=== PATIENT | female | born 1980 | race Caucasian/White ===

== ENCOUNTER 2023-02-05 12:42 | Emergency (ER) | payer BC, MEDICAID, OTHER ==
[~2023-02-05 12:42] MED LIST: Dexamethasone 4 MG/ML SDV IM ONE
[2023-02-05] MEDS ORDERED: hydrOXYzine HCl 25 MG Tab PO ONE (13:21)
== END 2023-02-05 13:58 ==
LOC: MERGE 12:42 → DL.ED 12:42
DX: T63.441A Toxic effect of venom of bees, accidental (unintentional), initial encounter (principal); Z91.030 Bee allergy status; Z88.2 Allergy status to sulfonamides; Z88.8 Allergy status to other drugs, medicaments and biological substances
CPT/HCPCS: 96372; 99283; 99284; A9270-GY; J1100

== ENCOUNTER 2023-04-10 15:07 | Emergency (ER) | payer SELFPAY ==
[2023-04-10] MEDS ORDERED: Sodium Chloride 0.9% 1,000 ML IV ONE (15:21)
[2023-04-10 15:39] LABS: BASOPHILS PERCENT AUTO 0.3 % (0.0-1.0); EOSINOPHILS PERCENT AUTO 2.1 % (1.0-3.0); HEMATOCRIT 39.8 % (37.0-47.0); HEMOGLOBIN 14.2 g/dL (12.0-16.0); LYMPHOCYTES PERCENT AUTO 22.4 % (20.5-50.1); MEAN CORPUSCULAR HEMOGLOBIN 33.3 pg (27.0-34.0); MEAN CORPUSCULAR HGB CONC 35.7 g/dL (33.0-35.0); MEAN CORPUSCULAR VOLUME 93.4 fL (80-100); MONOCYTES PERCENT AUTO 9.4 % (2-8); NEUTROPHILS PERCENT AUTO 65.8 % (42.2-75.2); PLATELET COUNT,PLT 173 10^3/uL (150-450); RED BLOOD CELL COUNT 4.26 10^6/uL (4.2-5.4); WHITE BLOOD CELL COUNT,WBC 6.2 10^3/uL (5.0-10.0)
[2023-04-10 15:55] LABS: ANION GAP 9.7 mEq/L (7-13); BILIRUBIN TOTAL 0.5 mg/dL (0.2-1.0); BUN/CREATININE RATIO 17.1 (No establ ref range); CALCIUM 8.1 mg/dL (8.5-10.1); CREATININE 0.76 mg/dL (0.55-1.02); EST CRCL DRUG DOSING (CG) 79.77 mL/min; POTASSIUM,K 3.7 mmol/L (3.5-5.1); PROTEIN TOTAL,TP 5.9 g/dL (6.4-8.2)
[2023-04-10 16:00] LABS: LACTIC ACID 0.6 mmol/L (0.4-2.0)
[2023-04-10 16:01] LABS: A/G RATIO 1.03
== END 2023-04-10 16:15 | disposition home or self-care (01) ==
LOC: DL.ED 15:07
DX: G40.909 Epilepsy, unspecified, not intractable, without status epilepticus (principal); J45.909 Unspecified asthma, uncomplicated; Z91.030 Bee allergy status; Z88.2 Allergy status to sulfonamides; Z91.09 Other allergy status, other than to drugs and biological substances
CPT/HCPCS: 36415; 80053; 83605; 85025; 99283; 99284